=== PATIENT | female | born 1965 | race Caucasian/White ===

== ENCOUNTER → 2016-11-09 | Day surgery (SDC) | payer OTHER ==
[~2016-11-09] VITALS: Ht 154.9 cm; Wt 6.0 kg
[~2016-11-09] MED LIST: ALPRAZOLAM0.25 M1 PO; PRISTIQ ER50 MG PO
--- NOTE | 2016-11-09 12:46 | Operative Report ---
Operative/Inv Procedure Report Surgery Date: 11/09/16 Name of Procedure: Right shoulder arthroscopy, extensive debridement, subacromial decompression, SLAP repair, subpectoral biceps tenodesis, arthroscopic rotator cuff repair Pre-Operative Diagnosis: Right shoulder SLAP tear Post-Operative Diagnosis: Right shoulder SLAP tear with full-thickness rotator cuff tear Estimated Blood Loss: scant Surgeon/Knitting Teacher: RAJANI FALLON,ISAAK PRATT Anesthesia: general endotracheal tube, block Complications: None Condition: Stable to PACU Operative Indication: This is a 50-year-old female with long-standing right shoulder pain as failed conservative care. MRI showed a SLAP tear. Risks and benefits of the procedure were discussed with the patient at length. Risks include but are not limited to nerve damage, muscle damage, infection, blood loss, blood clots, pulmonary embolus, and even . The patient agreed to the above risks and elected to proceed with surgery. Operative/Procedure Note Note: The patient was taken to the operating room and placed in the lateral decubitus position with the operative side up after anesthesia was induced. The upper extremity was prepped and draped in the normal sterile fashion. A timeout was performed prior to incision. The site marking was visualized prior to incision. IV antibiotics were given prior to incision. After the upper extremity was prepped and draped a spinal needle was used to insufflate the shoulder joint with saline. An 11 blade was used to incise the skin for the posterior portal placement. The cannula was then placed. The camera was inserted. An anterior portal was established just proximal and lateral to the coracoid with a spinal needle and an 11 blade. The diagnostic arthroscopy was then performed which showed the above findings. The shaver was used to debride the subscapularis insertion as well as the undersurface of the supraspinatus and infraspinatus. A wand was used to perform a biceps tenotomy. A drill guide was then inserted just off the lateral border the acromion. The shaver was used to debride the superior glenoid for later labral repair. A percutaneous portal was made with a spinal needle and an 11 blade. A 2.3 mm osteo-Raptor anchor was then placed at the superior glenoid. The suture shuttled deep to the labrum with a spinal needle and a #1 PDS suture through Nevasier's portal. This was tied through the anterior cannula with a locking knot and several half hitches. Excess suture was cut. A second anchor was placed to the anterior portal. The suture was shuttled deep the labrum with a Bird[place]ak. The SLAP tear was noted to be quite stable time. Next the subacromial space was entered through the posterior portal. A lateral portal was established with a spinal needle and an 11 blade. A blunt probe was inserted through the lateral portal. Next the shaver was inserted and a subacromial bursectomy was performed. Any bleeding vessels were identified and cauterized. The shaver was used to debride any bursal tissue on the undersurface of the acromion and surrounding the humeral head. The coracoacromial ligament was taken down with a wand. Care was taken to protect the rotator cuff tissue and only take bursal tissue. A wand was then used to further take down the soft tissue on the undersurface of the acromion. A bur was then inserted and the acromioplasty was then begun starting at the anterolateral edge of the acromion. This was extended down to the level of the acromioclavicular joint. This was then tapered further posteriorly. An 8 mm PassPort cannula was placed through the lateral portal site. A 6 mm PassPort cannula was placed through the anterior portal. An accessory portal was made just off of the lateral border the acromion with a spinal needle and an 11 blade. An 8 mm PassPort cannula was placed through this. The bur was used to prepare the rotator cuff footprint back to a healthy bed of bleeding bone for later rotator cuff repair. Any bursal adhesions superior to the rotator cuff were taken ginny with a shaver. A tap was used and a 5.5 mm helicoil anchor was placed just lateral to the articular surface in the rotator cuff footprint. An expressew needle was then used to shuttle the sutures from front to back. The medial row was tied down with a locking knot and several half hitches. The sutures were then crisscrossed over the top and fixed with one multi fix anchor for a lateral row fixation. This afforded excellent compression of the rotator cuff. The excess suture was then cut. A 1/8 inch Hemovac drain was placed through the posterior portal. All instruments were removed and the shoulder was copiously irrigated. The portal sites were closed with 3-0 nylon suture in a simple interrupted fashion. An incision was then made in the axillary fold. Blunt dissection was performed and the pectoralis major tendon was identified. A Hohmann retractor was inserted deep to this to expose the bicipital groove. The biceps tendon was then delivered from the wound and whipstitched starting at the musculotendinous junction. It extended proximally. The excess tendon was cut. The bicipital groove was then cleared off of any soft tissue. A guidewire was then drilled from an anterior to posterior direction in the groove. A 7 mm reamer was then used over the wire to drill the anterior cortex. A 7 x 10 mm Arthrex peek tenodesis screw was then inserted after the biceps tendon was delivered into the drill hole. The screw was then tightened down flush with the anterior humeral cortex. The sutures were then tied over the top. The excess suture was cut. The wound was copiously irrigated. The skin was closed with 2-0 vicryl suture in a simple interrupted fashion and a running subcuticular 4-0 Monocryl stitch. Dermabond was applied. A dry sterile dressing was placed. A sling was applied. The patient was transferred to PACU in stable condition. Findings: Displaced SLAP tear from the posterior 11 o'clock position to the anterior 1 o' clock position. Posterior labrum intact. Anterior labrum intact. Undersurface fraying of the supraspinatus and infraspinatus with a full-thickness component of the infraspinatus insertion. Biceps tendon root fraying. Fraying of the subscapularis insertion. Unstable chondral flap at the superior humeral head. Glenoid articular cartilage with grade 1 chondral changes. No loose bodies noted. Subacromial spur. Extensive subacromial bursitis present.
== END ==
LOC: STS 04:29
DX: S43.431A Superior glenoid labrum lesion of right shoulder, initial encounter (principal); X58.XXXA Exposure to other specified factors, initial encounter; M75.101 Unspecified rotator cuff tear or rupture of right shoulder, not specified as traumatic
CPT/HCPCS: J0171; J0690; J1100; J2250; J2405; J2765; J2795

== ENCOUNTER 2016-11-29 22:50 | Emergency (ER) | payer OTHER ==
[~2016-11-29] VITALS: Ht 154.9 cm; Wt 57.6 kg
--- NOTE | 2016-11-29 23:32 | ED GENERAL ADULT ---
History of Present Illness General Chief Complaint: Shoulder Injury Stated Complaint: SHOULER SURG 11/08,C/O SHOULDERBLADE,R CHEST,ARM PN Source: patient Exam Limitations: no limitations Vital Signs & Intake/Output Vital Signs & Intake/Output Vital Signs Date Time Temp Pulse Resp B/P B/P Pulse O2 O2 Flow FiO2 Mean Ox Delivery Rate 11/30 0354 97.1 62 18 124/78 99 Room Air 11/30 0102 96.8 66 20 126/78 99 Room Air 11/29 2259 98.1 61 18 125/79 98 Room Air ED Intake and Output 11/30 0000 11/29 1200 Intake Total Output Total Balance Patient 127 lb Weight Weight Reported by Patient Measurement Method Allergies Coded Allergies: No Known Allergies (11/03/16) Reconcile Medications Alprazolam 0.25 MG TABLET 1 TAB PO BIDP PRN ANXIETY (Reported) Desvenlafaxine Succinate (Pristiq ER) 50 MG TAB.ER.24H 1 TAB PO DAILY DEPRESSION (Reported) Triage Note: PT TO ED C/O RT RIB PAIN AND PAIN IN RT SHOULDER BLADE, WORSE WITH INSPIRATION, STARTED TONIGHT. PMH OF RT ELINAULDER SURGERY ON 11/08. IS WEARING A SLING. VSS. HAS ALSO HAD WORSENING RT SHOULDER PAIN THAT SOMETIMES GOES DOWN RT UPPER ARM, FOR THE LAST COUPLE OF DAYS. "I COULDN'T SLEEP LAST NIGHT" TAKES TYLENOL FOR PAIN Triage Nurses Notes Reviewed? yes Onset: Gradual Duration: hour(s): Timing: recent history Injury Environment: home Severity: moderate Associated Symptoms: chest pain HPI: 50 yo woman s/p right shoulder surgery 3 weeks ago, presents with right sided chest wall pain that began at approximately 9pm. She notes that the pain is worse when she takes a deep breath, and presses on her chest. She has no shortness of breath, radiation, chest pressure, fever or chills or radiating pain. She is otherwise well and has no other concerns. Past History Travel History Traveled to [place] past 21 day No Medical History Any Pertinent Medical History? see below for history Neurological: NONE EENT: NONE Cardiovascular: NONE Respiratory: NONE Gastrointestinal: NONE Hepatic: NONE Renal: NONE Musculoskeletal: NONE Psychiatric: NONE Endocrine: NONE Surgical History Surgical History: right shoulder labral tear/rotator cuff repair. Psychosocial History What is your primary language Czech Tobacco Use: Quit >30 days ago ETOH Use: occasional use Illicit Drug Use: denies illicit drug use Family History Hx Contributory? No Review of Systems Review of Systems Constitutional: Reports: no symptoms. EENTM: Reports: no symptoms. Respiratory: Reports: no symptoms. Cardiovascular: Reports: no symptoms. GI: Reports: no symptoms. Genitourinary: Reports: no symptoms. Musculoskeletal: Reports: no symptoms. Skin: Reports: no symptoms. Neurological/Psychological: Reports: no symptoms. Hematologic/Endocrine: Reports: no symptoms. Immunologic/Allergic: Reports: no symptoms. All Other Systems: Reviewed and Negative Physical Exam Physical Exam General Appearance: well developed/nourished, mild distress Head: atraumatic, normal appearance Eyes: Bilateral: normal appearance. Ears, Nose, Throat: normal pharynx, normal ENT inspection Neck: normal inspection, supple, full range of motion Respiratory: normal breath sounds, no respiratory distress, right sided chest wall tenderness to palpation Cardiovascular: regular rate/rhythm Gastrointestinal: normal bowel sounds, soft, non-tender, no organomegaly Back: normal inspection, normal range of motion Extremities: normal inspection, normal capillary refill, normal range of motion, no edema Neurologic/Psych: no motor/sensory deficits, awake, alert, oriented x 3 Skin: intact, normal color, warm/dry Core Measures ACS in differential dx? No CVA/TIA Diagnosis: No Severe Sepsis Present: No Septic Shock Present: No Progress Differential Diagnoses I considered the following diagnoses in my evaluation of the patient: costochondritis, pe, mi vs other. Plan of Care: Orders Procedure Date/time Status TROPONIN LEVEL 11/30 0245 Complete EKG 11/30 244 Active TROPONIN LEVEL 11/29 2342 Complete D-DIMER 11/29 2342 Complete COMPREHENSIVE METABOLIC PANEL 11/29 2342 Complete CBC WITHOUT DIFFERENTIAL 11/29 2342 Complete EKG 11/29 234 Active Laboratory Tests 11/30/16 0245: Troponin I < 0.01 11/30/16 0101: D-Dimer High Sensitivty 209 11/29/16 2358: Anion Gap 12, Estimated GFR 59 L, BUN/Creatinine Ratio 17.0, Glucose 89, Calcium 9.5, Total Bilirubin 0.3, AST 17, ALT 20, Alkaline Phosphatase 56, Troponin I < 0.01, Total Protein 6.9, Albumin 4.2, Globulin 2.7, Albumin/ Globulin Ratio 1.6, CBC w Diff NO MAN DIFF REQ, RBC 4.00 L, MCV 89.7, MCH 30.6, RDW 13.0, MPV 8.2, Gran % 71.3, Lymphocytes % 20.3 L, Monocytes % 6.6, Eosinophils % 0.8, Basophils % 1.0, Absolute Granulocytes 7.6 H, Absolute Lymphocytes 2.2, Absolute Monocytes 0.7 H, Absolute Eosinophils 0.1, Absolute Basophils 0.1, PUBS MCHC 34.1 Initial ED EKG: normal axis, normal intervals, normal p-waves, normal QRS complex, normal sinus rhythm Repeat EKG: unchanged Departure Departure Disposition: HOME OR SELF CARE Condition: Stable Clinical Impression Primary Impression: Chest wall pain Referrals: MANAS PURDY MD (PCP/Family) Departure Forms: Customer Survey General Discharge Information Comments Patient was a benign evaluation in the emergency department including troponin 2, EKG 2 and a negative d-dimer. Patient is safe for discharge with close follow-up by her PMD and orthopedist. Critical Care Note Critical Care Note Critical Care Time: non-applicable
[2016-11-30 00:14] LABS: ABSOLUTE BASOPHIL COUNT 0.1 /CUMM (0.0-0.2); ABSOLUTE EOSINOPHIL COUNT 0.1 /CUMM (0.0-0.7); ABSOLUTE GRANULOCYTE CT 7.6 /CUMM (1.4-6.5); ABSOLUTE LYMPH COUNT 2.2 /CUMM (1.2-3.4); ABSOLUTE MONOCYTE COUNT 0.7 /CUMM (0.10-0.60); EOSINOPHIL % 0.8 % (0-5); GRANULOCYTE % 71.3 % (42.2-75.2); HEMATOCRIT 35.8 % (37-47); MEAN CORPUSCULAR HGB 30.6 PG (27.0-31.0); MEAN CORPUSCULAR HGB CONC 34.1 G/DL (33.0-37.0); MEAN CORPUSCULAR VOLUME 89.7 FL (81.0-99.0); MEAN PLATELET VOLUME 8.2 FL (7.4-10.4); PLATELET COUNT 309 /CUMM (130-400); WHITE BLOOD CELL COUNT 10.6 /CUMM (4.8-10.8)
--- NOTE | 2016-11-30 00:32 | RADIOLOGY REPORT ---
EXAMINATION: XR PORTABLE CHEST CLINICAL INFORMATION: Right-sided chest pain. COMPARISON: None TECHNIQUE: Portable frontal view of the chest was obtained. 12:00 AM FINDINGS: No significant abnormality is noted involving the heart, lungs, mediastinum, bony thorax or soft tissues. IMPRESSION: Unremarkable examination.
[2016-11-30 03:54] VITALS: BP 124/78
== END 2016-11-30 03:54 ==
LOC: ERH 22:50
PROVIDERS: Pediatrics
DX: R07.89 Other chest pain (principal)
CPT/HCPCS: 93005; 93010